=== PATIENT | female | born 1995 | race Caucasian/White ===

== ENCOUNTER 2022-05-23 10:04 | Outpatient (CLI) | payer BC, MEDICAID, SELFPAY ==
[2022-05-23 12:57] LABS: Ferritin 64 ng/mL (8-252); Free T3 5.6 pg/mL (2.18-3.98); Thyroid Stim Hormone (TSH) 0.04 uIU/mL (0.358-3.74)
[2022-05-31 16:37] LABS: Thyroid Peroxidase AB 285 IU/mL (0-34); Zinc, Plasma or Serum 80 ug/dL (44-115)
== END 2022-05-23 23:59 | disposition home or self-care (01) ==
LOC: MTLAB 10:07
PROVIDERS: Referring Provider Physician Assistant Medical; Visit Provider Physician Assistant Medical
DX: L65.0 Telogen effluvium (principal)
CPT/HCPCS: 36415; 82310; 82728; 83970; 84439; 84443; 84481; 84630; 86376